=== PATIENT | male | born 1955 | race Caucasian/White ===

== ENCOUNTER → 2022-07-26 08:59 | Outpatient (BNVA) | payer MEDICARE, SELFPAY | PROVIDERS: PCP Nurse Practitioner Family; Visit Provider Psychiatry & Neurology Neurology | DX: R51.9 Headache, unspecified (principal); R44.0 Auditory hallucinations; R44.1 Visual hallucinations; G89.29 Other chronic pain; G47.00 Insomnia, unspecified | CPT/HCPCS: Q3014 ==

== ENCOUNTER → 2022-10-11 11:32 | Outpatient (BNVA) | payer MEDICARE, SELFPAY | PROVIDERS: PCP Nurse Practitioner Family; Visit Provider Nurse Practitioner Family | DX: R51.9 Headache, unspecified (principal); G89.29 Other chronic pain; R44.0 Auditory hallucinations; R44.1 Visual hallucinations | CPT/HCPCS: 99212 ==

== ENCOUNTER 2023-03-13 07:58 | Outpatient (REF) | payer MEDICARE, SELFPAY ==
--- NOTE | 2023-03-13 08:01 | EEG_ITS ---
FINDINGS: The waking background activity consists of a low voltage posterior 10 hertz alpha frequency intermixed anteriorly with low-voltage fast frequencies. All low-voltage fast frequencies predominant anteriorly. Photic stimulation is without activation. Hyperventilation was omitted. No sleep stages are identified. No focal, lateralizing, or paroxysmal discharges are seen. IMPRESSION: This waking EEG is within normal limits. MD GIDEON Rendon/NIK / [phone]
== END 2023-03-13 07:59 | disposition home or self-care (01) ==
LOC: HO.NEURO 07:58
PROVIDERS: PCP Nurse Practitioner Family; Visit Provider Nurse Practitioner Family
DX: R44.0 Auditory hallucinations (principal); R44.1 Visual hallucinations; R51.9 Headache, unspecified; G89.29 Other chronic pain
CPT/HCPCS: 95816

== ENCOUNTER 2023-04-11 09:06 | Outpatient (AMB) | payer MEDICARE, SELFPAY ==
--- NOTE | 2023-04-11 09:12 | MHC.OFFVIS ---
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 Pt reports that visual and auditory hallucination has decreased a little bit with aripiprazole 2 mg daily. Pt states that he still sees people, hears noise, music and people talking. Pt also has tinnitus. However, pt is not sure what is real and what is not real. Pt also reports forgetfulness, difficulty concentrate, don't remember things well. He reports constant temporal and evaristo-orbital pressure headache. Pt experiences dizzy, lightheadedness and losing balance. He dreams a lot of different things, and wakes up tired. He can't sleep well, snores, wakes up frequently in the middle of night and having daytime sleepiness. Pt was referr to psychiatry but patient was unable to get a psychiatrist consultation yet. However he had a counselor. [facility] Medical History Formed hallucinations of people Auditory hallucinations Neuropathy Gastritis Chest pain CAD (coronary artery disease) Depression Anxiety Diabetes HTN (hypertension) Alcohol abuse Surgical History S/P tooth extraction H/O shoulder surgery H/O knee surgery History of kidney surgery H/O removal of cyst History of ankle surgery Family History Father Cancer Cardiac disease Mother Cardiac disease Brother Ankylosis of spine Social History (Updated 04/11/23 @ 09:18 by Suzie Tesfaye CMA) Household Members: Spouse Alcohol intake: former Patient Tobacco Use Status: Former Tobacco user Current occupational status: retired and disabled Review of Systems Const All systems reviewed & are unremarkable except as noted in HPI and below ENT Reports Normal hearing present Neuro Reports Normal hearing present Physical Exam Vital Signs: Last Vital Signs Pulse 77 04/11/23 09:18 BP 120/62 04/11/23 09:18 Pulse Ox 95 04/11/23 09:18 Oxygen Delivery Method Room Air 04/11/23 09:18 Const General: cooperative Nutritional Appearance: average body habitus Orientation/consciousness: patient oriented x3 Neck Neck: Yes full ROM and Yes supple Resp Effort & Inspection: normal respiratory effort and able to speak in complete sentences Neuro General: patient oriented x3 and moves all extremities Cranial nerves: Yes Normal facial strength present, Yes Midline tongue present, Yes Symmetric palate elevation present, Yes Normal hearing present, Yes Ability to bilaterally rotate head present and Yes Ability to bilaterally elevate shoulders present Gait exam (Neuro): Normal gait present Motor exam (neuro): 5/5 motor strength present throughout, Pronator motor function not present and no tremor noted Psych Appearance: grossly normal Mental Status: mental status grossly normal Speech and movement: Normal speech and movement present Affect: normal affect Attitude: cooperative Orientation What is the (year) (season) (date) (day) (month)?: year, season, date, day and month Where are we (state) (county) (town or city) (hospital) (floor)?: state, county, town or city, hospital/clinic and floor Registration Name of 3 unrelated objects clearly and slowly, then ask patient to repeat all 3 of them. (1st repeat determines score. Make sure they can repeat all three): object 1, object 2 and object 3 Attention & Calculation (CHOOSE ONE) Spell WORLD backwards (DLROW): 5 letters Recall Ask patient to repeat the 3 items from question #3.: object 3 Language Show patient a wristwatch & ask what it is. Repeat for pencil.: watch and pencil Ask the patient to repeat the phrase 'No ifs, ands, or buts' after you.: correct Ask the patient to 'take a piece of paper with their right hand' 'fold paper in half' 'place paper on floor': take paper in right hand, fold paper in half and place paper on floor Print the sentence 'CLOSE YOUR EYES' on a piece. If patient actually closes eyes then score.: followed written direction Give patient a blank piece of paper & ask to write a sentence. Score if it contains a noun & verb.: sentence contains subject and verb Ask patient to copy figure of intersecting pentagons exactly. Score if all 10 angles & 2 intersects are included.: all 10 angles present & 2 are intersected Score Score: 28 Assessment & Plan Assessment & Plan (1) Auditory hallucinations: Code(s): R44.0 - Auditory hallucinations (2) Formed hallucinations of people: Code(s): R44.1 - Visual hallucinations (3) Chronic headaches: Comment: likely related to neck tightness Code(s): R51.9 - Headache, unspecified; G89.29 - Other chronic pain (4) Insomnia: Comment: multifactorial Code(s): G47.00 - Insomnia, unspecified Plan Advised patient to continue to take aripirazole 2 mg daily. Advised patient to undergo brain MRI. Advised patient to undergo in lab sleep study to assess sleep apnea, PLMD or REM behavior. Lab ordered to check any reversible causes memory loss. Orders: Orders RT PSG in-lab sleep study 04/11/23 F09 - Unspecified mental disorder due to known physiological condition, G47.00 - Insomnia, unspecified, G89.29 - Other chronic pain, R06.83 - Snoring, R40.0 - Somnolence, R44.0 - Auditory hallucinations, R44.1 - Visual hallucinations, R51.9 - Headache, unspecified Vitamin B12 and Folate 04/11/23 E11.9 - Type 2 diabetes mellitus without complications, F09 - Unspecified mental disorder due to known physiological condition, I10 - Essential (primary) hypertension, R44.0 - Auditory hallucinations, R51.9 - Headache, unspecified Comprehensive Met. Panel 04/11/23 E11.9 - Type 2 diabetes mellitus without complications, F09 - Unspecified mental disorder due to known physiological condition, I10 - Essential (primary) hypertension, R44.0 - Auditory hallucinations, R51.9 - Headache, unspecified OT Evaluation and Treatment 04/11/23 F09 - Unspecified mental disorder due to known physiological condition MR head/brain wo con 04/11/23 F09 - Unspecified mental disorder due to known physiological condition, R26.89 - Other abnormalities of gait and mobility, R51.9 - Headache, unspecified Complete Blood Count Auto Diff 04/11/23 E11.9 - Type 2 diabetes mellitus without complications, E55.9 - Vitamin D deficiency, unspecified, F09 - Unspecified mental disorder due to known physiological condition, I10 - Essential (primary) hypertension, R44.0 - Auditory hallucinations, R51.9 - Headache, unspecified, R53.83 - Other fatigue Erythrocyte Sedimentation Rate 04/11/23 E11.9 - Type 2 diabetes mellitus without complications, F09 - Unspecified mental disorder due to known physiological condition, I10 - Essential (primary) hypertension, R44.0 - Auditory hallucinations, R51.9 - Headache, unspecified Vitamin D 25-OH (D2 and D3) 04/11/23 E11.9 - Type 2 diabetes mellitus without complications, F09 - Unspecified mental disorder due to known physiological condition, I10 - Essential (primary) hypertension, R44.0 - Auditory hallucinations, R51.9 - Headache, unspecified TSH reflex Free T4 04/11/23 E11.9 - Type 2 diabetes mellitus without complications, F09 - Unspecified mental disorder due to known physiological condition, I10 - Essential (primary) hypertension, R44.0 - Auditory hallucinations, R51.9 - Headache, unspecified Coding Level of Care Code Est Pt Level 4 (34267) Diagnoses Auditory hallucinations R44.0 Formed hallucinations of people R44.1 Chronic headaches R51.9; G89.29 Insomnia G47.00
[2023-04-11 09:18] VITALS: BP 120/62; PULSE 77; O2SAT 95
== END 2023-04-11 09:52 | disposition home or self-care (01) ==
PROVIDERS: Visit Provider Nurse Practitioner Family
DX: R44.0 Auditory hallucinations (principal); R44.1 Visual hallucinations; R51.9 Headache, unspecified; G89.29 Other chronic pain; G47.00 Insomnia, unspecified
CPT/HCPCS: 99214

== ENCOUNTER 2023-04-11 09:06 | Outpatient (REF) | payer MEDICARE, SELFPAY ==
[2023-04-11 11:04] LABS: MANUAL DIFF FLAG NO
[2023-04-11 11:32] LABS: Basophils Absolute Auto 0.1 X10*3/uL (0.0-0.2); Basophils Percent Auto 0.8 % (0-2); Eosinophils Absolute Auto 0.1 X10*3/uL (0.0-0.4); Eosinophils Percent Auto 1.9 % (0-4); Hematocrit 35.9 % (42.0-52.0); Imm Gran Abs Auto 0.04 X10*3/uL (0.00-0.03); Imm Gran Pct Auto 0.6 % (0.0-0.4); Lymphocytes Absolute Auto 1.4 X10*3/uL (1.2-4.9); Lymphocytes Percent Auto 22.3 % (20-40); Mean Corpuscular HGB Conc 33.4 g/dl (31.0-36.0); Mean Corpuscular Volume 83.7 fL (80.0-98.0); Mean Platelet Volume 9.1 fL (9.4-12.4); Monocytes Absolute Auto 0.5 X10*3/uL (0.1-1.2); Monocytes Percent Auto 7.9 % (2-11); Neutrophils Absolute Auto 4.1 x10*3/uL (2.0-8.3); Neutrophils Percent Auto 66.5 % (45-73); Platelet Count 243 X10*3/uL (160-400); Red Blood Count 4.29 X10*6/uL (4.60-5.80); Red Cell Distribution Width 14.1 % (11.0-16.0); White Blood Count 6.2 X10*3/uL (4.8-10.8)
[2023-04-11 12:11] LABS: Alanine Aminotransferase 23 U/L (0-40); Albumin Level 4.5 g/dL (3.5-5.0); Alkaline Phosphatase 111 U/L (39-117); Anion Gap 14 (12-20); Aspartate Amino Transferase 17 U/L (5-37); Bilirubin Total 0.6 mg/dL (0.0-1.0); Blood Urea Nitrogen 16 mg/dL (9-16); Calcium 9.7 mg/dL (8.4-10.2); Carbon Dioxide 28 mmol/L (22-29); Chloride 103 mmol/L (96-108); Estimated Glomerular Filt Rate > 60; Glucose Random 93 mg/dL (60-115); Potassium 4.2 mmol/L (3.3-5.1); Sodium 141 mmol/L (135-145); Total Protein 7.1 g/dL (6.5-8.0)
[2023-04-11 12:22] LABS: Erythrocyte Sedimentation Rate 9 MM/HR (0-15)
[2023-04-11 12:30] LABS: TSH reflex Free T4 1.27 uIU/mL (0.32-4.0)
[2023-04-11 12:38] LABS: Folate 8.6 ng/mL (> or = 4.0); Vitamin B12 388 pg/mL (200-900)
[2023-04-15 14:24] LABS: Vitamin D 25-OH, D2 <4 ng/mL; Vitamin D 25-OH, D3 36 ng/mL; Vitamin D 25-OH, Total 36 ng/mL (30-100)
== END 2023-04-11 09:07 | disposition home or self-care (01) ==
LOC: HO.LAB 09:06
PROVIDERS: PCP Nurse Practitioner Family; Visit Provider Nurse Practitioner Family
DX: R44.0 Auditory hallucinations (principal); R44.1 Visual hallucinations; G89.29 Other chronic pain; R51.9 Headache, unspecified; G47.00 Insomnia, unspecified; E11.9 Type 2 diabetes mellitus without complications; I10 Essential (primary) hypertension; F09 Unspecified mental disorder due to known physiological condition; R53.83 Other fatigue; Z79.899 Other long term (current) drug therapy
CPT/HCPCS: 36415; 80053; 82306; 82607; 82746; 84443; 85025; 85652; 99212

== ENCOUNTER 2023-05-25 08:46 | Outpatient (REF) | payer MEDICARE, SELFPAY ==
--- NOTE | ~2023-05-25 | MR_ITS ---
EXAMINATION: MR BRAIN WITHOUT CONTRAST CLINICAL INFORMATION: Cognitive disorder. Headaches and balance problems. COMPARISON: None available. TECHNIQUE: Multiplanar, multisequence imaging of the brain was performed without contrast. FINDINGS: No diffusion abnormalities are identified to suggest an acute infarct. No mass effect or midline shift is seen. Mild scattered white matter signal changes may be due to chronic microangiopathy. There is [id number] generalized brain parenchymal volume loss with concordant ex vacuo dilatation of the ventricles. A potential small chronic lacunar infarct is visible in the right periatrial white matter. No extra-axial fluid collections are seen. The brainstem and cerebellum are normal. The gradient refocused acquisition demonstrates no pathologic magnetic susceptibility artifact to indicate underlying acute or chronic blood products. The craniovertebral junction, marrow signal, and midline structures are normal. The major intracranial flow voids at the level of the lower brule of [place] are preserved. The dural venous sinus flow voids are maintained. The mastoid air cells and paranasal sinuses are fairly well aerated. MR/MR head/brain wo con IMPRESSION: No acute intracranial process. [id number] generalized brain parenchymal volume loss and nonspecific mild white matter signal changes which may be due to chronic microangiopathy.
== END 2023-05-25 08:47 | disposition home or self-care (01) ==
LOC: HO.MRI 08:46
PROVIDERS: PCP Nurse Practitioner Family; Visit Provider Nurse Practitioner Family
DX: R51.9 Headache, unspecified (principal); R26.89 Other abnormalities of gait and mobility; F09 Unspecified mental disorder due to known physiological condition
CPT/HCPCS: 70551

== ENCOUNTER 2023-07-13 08:36 | Outpatient (AMB) | payer MEDICARE, SELFPAY ==
--- NOTE | 2023-07-13 08:37 | A.OFFVIS_ITS ---
Intake Vital Signs 07/13/23 08:45 Height 5 ft 10 in Weight 195 lb BMI 28.0 BP 120/78 Blood Pressure Location Lt brachial Position Sitting Pulse 63 Pulse Source Pulse Oximeter Pulse Oximetry (%) 98 Oxygen Delivery Method Room Air Intake Visit Reasons: 3 mnts f/u appt-LVM Intake Note: Patient presets for 3 month F/U. wants to know if he has signs of Dementia or could it be connected to covid Allergies No Known Allergies Allergy (Verified 07/13/23 08:42) HPI HPI Comments History of Present Illness Details 68 y/o male patient presents for follow up of auditory and visual hallucination. Pt reports that visual and auditory hallucination has been improved with aripirazole 2 mg daily, but he still can see people, hears noise, music and people talking. Pt also has tinnitus. Pt also reports increased forgetfulness, difficulty concentrate, don't remember things well. He had a neuropsychology evaluation done in Apr, 2022. The result was normal cognition for someone of his age and background, and suggested to have PSG sleep study. PSG ordered, but not done yet, he thinks that he rescheduled it. He dreams a lot of different things, and wakes up tired. He can't sleep well, snores, wakes up frequently in the middle of night and having daytime sleepiness. He reports constant temporal and evaristo-orbital pressure headache. Pt experiences dizzy, lightheadedness and losing balance. Pt was referred to psychiatry but patient was unable to get a psychiatrist consultation yet. [facility] Medical History Formed hallucinations of people Auditory hallucinations Neuropathy Gastritis Chest pain CAD (coronary artery disease) Depression Anxiety Diabetes HTN (hypertension) Alcohol abuse Surgical History S/P tooth extraction H/O shoulder surgery H/O knee surgery History of kidney surgery H/O removal of cyst History of ankle surgery Family History Father Cancer Cardiac disease Mother Cardiac disease Brother Ankylosis of spine Social History Household Members: Spouse Alcohol intake: former Patient Tobacco Use Status: Former Tobacco user Current occupational status: retired and disabled Review of Systems Const All systems reviewed & are unremarkable except as noted in HPI and below ENT Reports Normal hearing present Neuro Reports Normal hearing present Physical Exam Vital Signs: Last Vital Signs Pulse 63 07/13/23 08:45 BP 120/78 07/13/23 08:45 Pulse Ox 98 07/13/23 08:45 Oxygen Delivery Method Room Air 07/13/23 08:45 BMI result Body Mass Index 28.0 Const General: cooperative Nutritional Appearance: average body habitus Orientation/consciousness: patient oriented x3 Neck Neck: Yes full ROM and Yes supple Resp Effort & Inspection: normal respiratory effort and able to speak in complete sentences Neuro General: patient oriented x3 and moves all extremities Cranial nerves: Yes Normal facial strength present, Yes Midline tongue present, Yes Symmetric palate elevation present, Yes Normal hearing present, Yes Ability to bilaterally rotate head present and Yes Ability to bilaterally elevate shoulders present Gait exam (Neuro): Normal gait present Motor exam (neuro): 5/5 motor strength present throughout, Pronator motor function not present and no tremor noted Psych Appearance: grossly normal Mental Status: mental status grossly normal Speech and movement: Normal speech and movement present Affect: normal affect Attitude: cooperative Assessment & Plan Assessment & Plan (1) Auditory hallucinations: Code(s): R44.0 - Auditory hallucinations (2) Formed hallucinations of people: Code(s): R44.1 - Visual hallucinations (3) Chronic headaches: Comment: likely related to neck tightness Code(s): R51.9 - Headache, unspecified; G89.29 - Other chronic pain (4) Insomnia: Comment: multifactorial Code(s): G47.00 - Insomnia, unspecified Plan Advised patient to continue to take aripirazole 2 mg daily. Advised patient to undergo in lab sleep study to assess sleep apnea, PLMD or REM behavior. Advised patient to have repeat neuropsychology evaluation of memory loss. May try magnesium for headache prevention. Orders: Referrals Neuropsychiatry Referral F09 - Unspecified mental disorder due to known physi ological condition, R44.0 - Auditory hallucinations, R44.1 - Visual hallucinations Medications: New magnesium oxide 400 mg PO DAILY 90 days 90 tabs 1RF Coding Level of Care Code Est Pt Level 4 (56745) Diagnoses Auditory hallucinations R44.0 Formed hallucinations of people R44.1 Chronic headaches R51.9; G89.29 Insomnia G47.00
[2023-07-13 08:45] VITALS: BP 120/78; PULSE 63; O2SAT 98; BMI 28.0
== END 2023-07-13 09:23 | disposition home or self-care (01) ==
PROVIDERS: PCP Nurse Practitioner Family; Visit Provider Nurse Practitioner Family
DX: R44.0 Auditory hallucinations (principal); R44.1 Visual hallucinations; R51.9 Headache, unspecified; G89.29 Other chronic pain; G47.00 Insomnia, unspecified
CPT/HCPCS: 99214

== ENCOUNTER → 2023-07-13 08:36 | Outpatient (BNVA) | payer MEDICARE, SELFPAY | PROVIDERS: PCP Nurse Practitioner Family; Visit Provider Nurse Practitioner Family | DX: R44.0 Auditory hallucinations (principal); R44.1 Visual hallucinations; R51.9 Headache, unspecified; G47.00 Insomnia, unspecified; G89.29 Other chronic pain | CPT/HCPCS: 99212 ==

== ENCOUNTER → 2023-07-29 20:30 | Outpatient (REF) | payer MEDICARE, SELFPAY | LOC: HO.SL 20:30 | PROVIDERS: PCP Nurse Practitioner Family; Visit Provider Nurse Practitioner Family | DX: G47.00 Insomnia, unspecified (principal); R51.9 Headache, unspecified; G89.29 Other chronic pain; F09 Unspecified mental disorder due to known physiological condition; R06.83 Snoring; G47.19 Other hypersomnia; I10 Essential (primary) hypertension; E11.9 Type 2 diabetes mellitus without complications; G47.30 Sleep apnea, unspecified; R44.1 Visual hallucinations; G47.29 Other circadian rhythm sleep disorder | CPT/HCPCS: 95810 ==

== ENCOUNTER → 2023-07-29 22:02 | Outpatient (BNV) | payer MEDICARE, SELFPAY | PROVIDERS: PCP Nurse Practitioner Family; Visit Provider Internal Medicine | DX: R06.83 Snoring (principal) | CPT/HCPCS: 95810 ==

== ENCOUNTER 2025-04-13 09:46 | Outpatient (AMB) | payer MEDICARE, SELFPAY ==
--- NOTE | 2025-04-13 09:57 | HO.SPINEOV ---
Vital Signs 04/13/25 10:06 Height 5 ft 10 in Weight 148 lb BMI 21.2 Intake Visit Reasons: right leg weakness Intake Note: Mr. Joyner is here today c/o back pain and weakness. 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 He is a pleasant 70-year-old male who comes in today for evaluation of right-sided low back pain. He reports this has been ongoing for many years, and states that he previously had a decompression surgery done about 10 years ago in an attempt to treat this. He does not remember what exactly the procedure was, or who the surgeon was that did it, but he does state that it was done somewhere in [place]. In addition to his right-sided low back pain he reports some shooting pain into his right lateral hip and right lateral thigh. He has a fairly complex past medical history including 2 CVAs in the past 1 year. Currently on 2 different forms of anticoagulation. He reports baseline right-sided upper and lower extremity weakness as a result of the last CVA that he had about 6 months ago. He also has a previous history of myocardial infarction, and is scheduled to undergo a Watchman procedure for AFib later this year. He states that over the course of the last year so his low back pain has significantly intensified, increasing to what he calls an 8/10 pain today. He states the pain is essentially constant throughout the day, in the only relief that he is able to achieve his by sitting in his comfortable chair in his living room. He is currently taking Tylenol at home to help mitigate the pain but denies any other current medications. He has been referred to physical therapy, and states that he is going to start with them shortly. He has not attempted injections in his lumbar spine as of yet. 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 Social hx: The patient does not smoke, reports no substance use. Medications: Eliquis, vitamin-C, Lipitor, baclofen, carbamazepine, Pletal, clopidogrel, B12, Cymbalta, ferrous sulfate, gabapentin, isosorbide, Latanoprost, magnesium glycinate, melatonin, metoprolol, pantoprazole, trazodone, valsartan. Allergies: NKDA. Physical exam: The patient has 5/5 strength with right-sided knee extension and dorsiflexion. The rest of his right-sided strength is diffusely 4/5 at best, with some muscle groups (handgrip, iliopsoas) slightly weaker than others, which I would rate somewhere between 3/5-4/5. He ambulates slowly with a slightly antalgic gait, favoring the left-hand side. He uses a walker at baseline to help with ambulation. He is able to rise from a seated position with some difficulty, and also is able to get up onto the examination table with a some difficulty. (+) Right sided osborn's, (+) R sided clonus. No osborn's or clonus on left side. Mild hyperreflexia also noted on right side only. Imaging review: MRI of the lumbar spine completed at [facility] on 03/29/2025 shows severe right-sided foraminal stenosis L3-4, with notable disc degeneration at this level. There is severe central canal stenosis with bilateral foraminal stenosis at L4-5. Severe degenerative disc disease noted at this level with notable posterior disc bulge. Impression: Pietro is a pleasant, complicated 70-year-old male who comes in today for evaluation of right-sided low back pain and some shooting pain to his right lower extremity. This has been ongoing for the past 10 years or so and was not adequately treated by his last lumbar spine procedure. He reports his pain is essentially constant throughout the day. I believe his pain is likely originating from the listhesis and nerve compression seen at L4-5 on MRI imaging. This is something that Dr. Quarles would typically treat with L4-5 lumbar fusion. However, the patient's recent past medical history would make this a fairly high risk surgery. We would have to stop his anticoagulants for surgery, and in the context of 2 CVAs in the past 1 year this could be particularly detrimental. In addition to this he is scheduled to undergo a Watchman procedure to control his AFib in try and reduce further clotting. I believe that he should follow up with his clinical services professional, complete his Watchman procedure, and see if his clinical services professional believes he is a reasonable candidate to stop his anticoagulants before any further discussion regarding surgery takes place. In the interim, I would like to send a referral for our colleagues in pain management to evaluate him for possible injections at L4-5 to help reduce some of his pain while his other co-morbidities are addressed. I would like to see him again in clinic after he recovers from his Watchman procedure and discusses risk stratification with his clinical services professional. Thank you for allowing us to care for your patient. The total time spent with this visit with this patient was 45 minutes reviewing history, physical exam, MRI imaging review, and implementation of treatment plan or further diagnostic testing Doug Quarles MD,PhD [facility] Orders: Referrals Pain Management Referral M47.819 - Spondylosis without myelopathy or radiculopathy, site unspecified Coding Level of Care Code New Pt Level 4 (55980) Diagnoses Spondyloarthropathy M47.819
[2025-04-13 10:06] VITALS: BMI 21.2
--- OUTSIDE RECORDS SUMMARY | 2025-04-13 11:00 | XMS_ITS | Encounter Summary ---
Author Organization [facility] Address [address] [place] [address] Care Team Providers Care Workforce Management Analyst Name Role Phone Physician, Pcp Unknown Primary Care Provider Joan vailable Encounter Details Date Type Department Care Team (Late st Contact Info) Description 01/24/2025 Lab Requisition [facility] - Main Lab [address] [facility] [place] [address] Katia Bhandari PA [address] [place] [address] Encounter for other general examination Social History Tobacco Use Types Packs/Day Years Used Date Smoking Tobacco: Never Assessed Sex and Gender Information Value Date Recorded Sex Assigned at Not on file Legal Sex Male 12:18 PM EST Gender Identity Not on file Sexual Orientation Not on file documented as of this encounter Plan of Treatment Not on file documented as of this encounter Procedures Procedure Name Priority Date/Time Associated Diagnosis Comments CBC WITH AUTO DIFFERENTIAL Routine 01/24/2025 6:23 AM EDT Encounter for other general examination CBC AND DIFFERENTIAL Routine 01/24/2025 6:23 AM EDT Encounter for other general examination MAGNESIUM Routine 01/24/2025 6:23 AM EDT Encounter for other general examination COMPREHENSIVE METABOLIC PANEL Routine 01/24/2025 6:23 AM EDT Encounter for other general examination documented in this encounter Results * (ABNORMAL) CBC auto differential (01/24/2025 6:23 AM EDT) Pathologist [facility] WBC 5.0 4.8 - 10.8 K/mcL LAB HEMETOLOGY METHOD 01/24/2025 9:20 AM [facility] RBC 3.40(L) 4.50 - 5.50 M/mcL LAB HEMETOLOGY METHOD 01/24/2025 9:20 AM [facility] Hemoglobin 9.4(L) 13.5 - 17.5 g/dL LAB HEMETOLOGY METHOD 01/24/2025 9:20 AM [facility] Hematocrit 29.0(L) 42.0 - 54.0 % LAB HEMETOLOGY METHOD 01/24/2025 9:20 AM [facility] MCV 85.8 79.0 - 98.0 FL LAB HEMETOLOGY METHOD 01/24/2025 9:20 AM [facility] MCH 27.8 27.0 - 32.0 pcg LAB HEMETOLOGY METHOD 01/24/2025 9:20 AM [facility] MCHC 32.4 32.0 - 37.0 g/dL LAB HEMETOLOGY METHOD 01/24/2025 9:20 AM [facility] RDW 15.4(H) 11.0 - 15.0 % LAB HEMETOLOGY METHOD 01/24/2025 9:20 AM [facility] Platelets 215 130 - 400 K/mcL LAB HEMETOLOGY METHOD 01/24/2025 9:20 AM [facility] MPV 9.6 7.0 - 11.0 FL LAB HEMETOLOGY METHOD 01/24/2025 9:20 AM [facility] NRBC 0.0 <1.0 % LAB HEMETOLOGY METHOD 01/24/2025 9:20 AM [facility] NRBC Absolute 0.00 <0.10 K/mcL LAB HEMETOLOGY METHOD 01/24/2025 9:20 AM [facility] Neutrophils Relative 63.3 % LAB HEMETOLOGY METHOD 01/24/2025 9:20 AM [facility] Lymphocytes Relative 23.6 % LAB HEMETOLOGY METHOD 01/24/2025 9:20 AM [facility] Monocytes Relative 9.5 % LAB HEMETOLOGY METHOD 01/24/2025 9:20 AM [facility] Eosinophils Relative 2.6 % LAB HEMETOLOGY METHOD 01/24/2025 9:20 AM [facility] Basophils Relative 0.6 % LAB HEMETOLOGY METHOD 01/24/2025 9:20 AM [facility] Immature Granulocytes Relative 0.4 % LAB HEMETOLOGY METHOD 01/24/2025 9:20 AM [facility] Neutrophils Absolute 3.14 1.50 - 7.00 K/mcL LAB HEMETOLOGY METHOD 01/24/2025 9:20 AM [facility] Lymphocytes Absolute 1.17 1.00 - 5.00 K/mcL LAB HEMETOLOGY METHOD 01/24/2025 9:20 AM [facility] Monocytes Absolute 0.47 0.20 - 1.00 K/mcL LAB HEMETOLOGY METHOD 01/24/2025 9:20 AM [facility] Eosinophils Absolute 0.13 0.00 - 0.50 K/mcL LAB HEMETOLOGY METHOD 01/24/2025 9:20 AM [facility] Basophils Absolute 0.03 0.00 - 0.20 K/mcL LAB HEMETOLOGY METHOD 01/24/2025 9:20 AM [facility] Immature Granulocytes Absolute 0.02 0.00 - 0.03 K/mcL LAB HEMETOLOGY METHOD 01/24/2025 9:20 AM [facility] Blood Venous blood specimen / Unknown Venipuncture / Unknown 01/24/2025 6:23 AM EDT 01/24/2025 8:30 AM EDT us Katia LAROSE LAB BLOOD ORDERABLES Final Resul t Performing Organization Address [facility] Co de Phone Number [facility] [address] [place] [address], [place] [phone] * (ABNORMAL) Magnesium (01/24/2025 6:23 AM EDT) [facility] Magnesium 1.2(L) 1.9 - 2.6 mg/dL LAB CHEMISTRY METHOD 01/24/2025 9:38 AM EDT [facility] Blood Venous blood specimen / Unknown Venipuncture / Unknown 01/24/2025 6:23 AM EDT 01/24/2025 8:30 AM EDT us Katia LAROSE LAB BLOOD ORDERABLES Final Resul t Performing Organization Address [facility] de Phone Number [facility] [address] [place] [address], [place] [phone] * Comprehensive metabolic panel (01/24/2025 6:23 AM EDT) [facility] Sodium 136 133 - 145 mmol/L LAB CHEMISTRY METHOD 01/24/2025 9:38 AM EDT [facility] Potassium 4.3 3.5 - 5.5 mmol/L LAB CHEMISTRY METHOD 01/24/2025 9:38 AM EDT [facility] Chloride 104 96 - 110 mmol/L LAB CHEMISTRY METHOD 01/24/2025 9:38 AM EDT [facility] CO2 26 21 - 32 mmol/L LAB CHEMISTRY METHOD 01/24/2025 9:38 AM T [facility] Anion Gap 6 3 - 11 LAB CHEMISTRY METHOD 01/24/2025 9:38 AM EDT [facility] Glucose 85 70 - 100 mg/dL LAB CHEMISTRY METHOD 01/24/2025 9:38 AM [facility] BUN 16 5 - 25 mg/dL LAB CHEMISTRY METHOD 01/24/2025 9:38 AM [facility] Creatinine 0.74 0.70 - 1.30 mg/dL LAB CHEMISTRY METHOD 01/24/2025 9:38 AM [facility] LAB eGFR 98 >=60 mL/min/1. 73m2 LAB CHEMISTRY METHOD 01/24/2025 9:38 AM [facility] Comment:Calculation based on the Chronic Kidney Disease Epidemiology Collaboration (CKD-EPI) equation refit without adjustment for race. BUN/Creatinine Ratio 21.6 LAB CHEMISTRY METHOD 01/24/2025 9:38 AM [facility] Calcium 8.9 8.5 - 10.5 mg/dL LAB CHEMISTRY METHOD 01/24/2025 9:38 AM [facility] AST (SGOT) 18 10 - 42 unit/L LAB CHEMISTRY METHOD 01/24/2025 9:38 AM [facility] ALT (SGPT) 29 10 - 60 unit/L LAB CHEMISTRY METHOD 01/24/2025 9:38 AM [facility] Alkaline Phosphatase 97 42 - 121 unit/L LAB CHEMISTRY METHOD 01/24/2025 9:38 AM [facility] Total Protein 6.0 6.0 - 8.0 g/dL LAB CHEMISTRY METHOD 01/24/2025 9:38 AM [facility] Albumin 3.7 3.2 - 5.0 g/dL LAB CHEMISTRY METHOD 01/24/2025 9:38 AM [facility] Total Bilirubin 0.3 0.0 - 1.4 mg/dL LAB CHEMISTRY METHOD 01/24/2025 9:38 AM [facility] Blood Venous blood specimen / Unknown Venipuncture / Unknown 01/24/2025 6:23 AM EDT 01/24/2025 8:30 AM EDT us Katia LAROSE LAB BLOOD ORDERABLES Final Resul t [facility] ([facility]) [facility] [address] [place] [address], documented in this encounter Visit Diagnoses Diagnosis Encounter for other general examination documented in this encounter Care Teams Workforce Management Analyst Relationship Specialty Start Date End Date Physician, Pcp Unknown PCP - General 01/26/25 documented as of this encounter
--- OUTSIDE RECORDS SUMMARY | 2025-04-13 11:00 | XMS_ITS | Encounter Summary ---
Author Organization [facility] Address [address] [place] [address] Care Team Providers Care Paperhanger Assistant Name Role Phone Physician, Pcp Unknown Primary Care Provider Joan vailable Encounter Details Date Type Department Care Team (Late st Contact Info) Description 02/25/2025 Lab Requisition [facility] - Main Lab [address] [facility] [place] [address] Bimal Drummond MD [address] [facility] [address] [place], [place] [id number] Gross hematuria Social History Tobacco Use Types Packs/Day Years [...] Procedure Name Priority Date/Time Associated Diagnosis Comments NON-GYNECOLOGIC CYTOLOGY Routine 02/13/2025 12:00 AM EDT Gross hematuria documented in this encounter Results * Non-gynecologic cytology (02/13/2025 12:00 AM EDT) Final Diagnosis A. Urine, Voided, [id number]: Negative for high grade urothelial carcinoma. Acute inflammatory cells are present. Results of UroVysion fluorescence in situ hybridization (FISH) testing: CEP3: Normal CEP7: Normal CEP17: Normal LSI 9p21: Normal Interpretation: Normal profile Controls stained appropriately. Note: The results are intended as a screening device and should be interpreted in association with other clinical and pathological findings. 03/18/2025 6:07 PM EDT [facility] ([facility]) [facility] Specimen A Adequacy Satisfactory for evaluation 03/18/2025 6:07 PM EDT [facility] Clinical Information Gross hematuria R31.0 Urine Cytology/FISH (now) 03/18/2025 6:07 PM EDT [facility] Gross Description A. Urine, Voided, [id number]: Received one ThinPrep slide for cytology and one ThinPrep slide for UroVysion FISH 03/18/2025 6:07 PM EDT [facility] Disclaimer Unless otherwise specified, all tissue is 10% NB formalin fixed and paraffin embedded. Technical pathology services provided by [facility] at [address] [place] [address] [address], [place] [address] (CLIA #[id number]/Lillian Sanchez MD, Quiller Machine Fixer) 03/18/2025 6:07 PM EDT [facility] Urine Urine specimen from urethra / Unknown 02/13/2025 02/25/2025 2:13 PM EDT us Bimal Drummond MD LAB CYTOLOGY ORDERABLES Fin al Result [facility]) [facility] LAB [address] [place] [address], documented in this encounter Visit Diagnoses Diagnosis Gross hematuria documented in this encounter Care Teams Paperhanger Assistant Relationship Specialty Start Date End Date Physician, Pcp Unknown PCP - General 01/26/25 documented as of this encounter
--- OUTSIDE RECORDS SUMMARY | 2025-04-13 11:00 | XMS_ITS | Encounter Summary ---
Author Organization [facility] Address [address] [place] [address] Care Team Providers Care Crimping Press Operator Name Role Phone Physician, Pcp Unknown Primary Care Provider Joan vailable Encounter Details Date Type Department Care Team (Late st Contact Info) Description 05/05/2024 Lab Requisition [facility] - Main Lab [address] [place] [address] Mark Starr MD [address] [place] [id number] Cerebral infarction, unspecified (CMS/HCC V24, CMS/HCC V28) Social History Tobacco Use Types Packs/Day Years [...] Procedure Name Priority Date/Time Associated Diagnosis Comments C-REACTIVE PROTEIN Routine 05/05/2024 6: 23 AM EST Cerebral infarction, unspecified (CMS/HCC) documented in this encounter Results * (ABNORMAL) C-reactive protein (05/05/2024 6:23 AM EST) C-Reactive Protein 5.08(H) <=0.50 mg/dL LAB CHEMISTRY METHOD 05/05/2024 1:38 PM EST [facility] ([facility]) [facility] Blood Venous blood specimen / Unknown Venipuncture / Unknown 05/05/2024 6:23 AM EST 05/05/2024 11:55 AM EST us Adnan M Dahdul MD LAB BLOOD ORDERABLES Final Res ult [facility] ([facility]) [facility] [address] [place] [address], documented in this encounter Visit Diagnoses Diagnosis Cerebral infarction, unspecified (CMS/HCC V24, CMS/HCC V28) documented in this encounter Care Teams Crimping Press Operator Relationship Specialty Start Date End Date Physician, Pcp Unknown PCP - General 01/26/25 documented as of this encounter
--- OUTSIDE RECORDS SUMMARY | 2025-04-13 11:00 | XMS_ITS | Encounter Summary ---
Author Organization [facility] Address [address] [place] [address] Care Team Providers Care Sas Programmer Name Role Phone Physician, Pcp Unknown Primary Care Provider Joan vailable Encounter Details Date Type Department Care Team (Late st Contact Info) Description 01/25/2025 Lab Requisition [facility] - Main Lab [address] [facility] [place] [address] Katia Bhandari PA [address] [place] [address] Encounter for other general examination [...] Procedure Name Priority Date/Time Associated Diagnosis Comments PHOSPHORUS Routine 01/25/2025 5:25 AM EDT Encounter for other general examination MAGNESIUM Routine 01/25/2025 5:25 AM EDT Encounter for other general examination documented in this encounter Results * Phosphorus (01/25/2025 5:25 AM EDT) Phosphorus 3.7 2.5 - 4.5 mg/dL LAB CHEMISTRY METHOD 01/25/2025 9:51 AM EDT [facility] ([facility] Blood Venous blood specimen / Unknown Venipuncture / Unknown 01/25/2025 5:25 AM EDT 01/25/2025 8:41 AM EDT Katia LAROSE LAB BLOOD ORDERABLES Final Resul t Performing Organization Address City/[facility]/ZIP Co de Phone Number [facility] [address] [place] [address], [place] [phone] * (ABNORMAL) Magnesium (01/25/2025 5:25 AM EDT) Magnesium 1.5(L) 1.9 - 2.6 mg/dL LAB CHEMISTRY METHOD 01/25/2025 9:46 AM EDT [facility] Blood Venous blood specimen / Unknown Venipuncture / Unknown 01/25/2025 5:25 AM EDT 01/25/2025 8:41 AM EDT us Katia LAROSE LAB BLOOD ORDERABLES Final Resul t Performing Organization Address [facility] Co de Phone Number [facility] [address] [place] [address], [place] [phone] documented in this encounter Visit Diagnoses Diagnosis Encounter for other general examination documented in this encounter Care Teams Sas Programmer Relationship Specialty Start Date End Date Physician, Pcp Unknown PCP - General 01/26/25 documented as of this encounter
--- OUTSIDE RECORDS SUMMARY | 2025-04-13 11:00 | XMS_ITS | Clinical Summary ---
Author Organization [address] Address [address] [place] [address] Phone Care Team Providers Care Air Traffic Coordinator Name Role Phone Physician, Pcp Unknown Primary Care Provider Joan vailable Encounters Date Type Department Care Team Description 03/09/[address] [facility] Lab [address] [place] [address] Bimal Drummond MD Benign prostatic hyperplasia with lower urinary tract symptoms 02/25/[address] [facility] Lab [address] [place] [address] Bimal Drummond MD Gross hematuria 02/02/[address] [facility] Lab [address] [place] [address] Marcella Duque PA Encounter for other general examination 02/01/[address] [facility] Lab [address] [place] [address] Katia Bhandari PA Unspecified external cause status 02/01/[address] [facility] Lab [address] [place] [address] Katia Bhandari PA 01/27/[address] [facility] Lab [address] [place] [address] Katia Bhandari PA Encounter for other general examination 01/25/[address] [facility] Lab [address] [place] [address] Katia Bhandari PA Encounter for other general examination 01/24/2025 Lab Requisition [facility] Lab [address] [place] [address] Katia Bhandari PA Encounter for other general examination from Last 3 Months Social History Tobacco Use Types Packs/Day Years Used Date Smoking Tobacco: Never Assessed Sex and Gender Information Value Date Recorded Sex Assigned at Not on file Legal Sex Male 12:18 PM EST Gender Identity Not on file Sexual Orientation Not on file Plan of Treatment Health Maintenance Due Date Last Done Comments Colorectal Cancer Screening: Colonoscopy 1955 Diabetes: Annual Foot Exam 01/18/1966 RSV Immunization Adult Patients (1 - Risk 50-74 years 1-dose series) 01/18/2006 Pneumococcal Vaccine: 50+ Years (2 of 2 - PCV20 or PCV21) 04/10/2020 04/10/2019 Zoster Vaccines (2 of 2) 07/04/2021 05/09/2021 Abdominal Aortic Aneurysm (AAA) Screen 05/23/2022 Falls Risk Assessment 05/23/2022 Medicare Annual Wellness Visit 05/23/2022 Social Influencers of Health Screening 05/23/2022 Diabetes: Annual Retina Eye Exam 11/23/2022 11/23/2021 Diabetes: Annual Urine Albumin-Creatinine Ratio (uACR) 05/01/2024 01/07/2020, 08/30/2018 Depression Screening 06/25/2024 Diabetes: Blood Sugar Control Test (HGBA1C) 10/24/2024 04/26/2024, 06/19/2023 COVID-19 Vaccine ( season) 2025 06/06/2022, 05/09/2021, 10/13/2020, Additional history exists Influenza Vaccine (#1) 2025 , 06/19/2023, 03/10/2022, Additional history exists Diabetes: Annual GFR (Glomerular Filtration Rate) 02/02/2026 02/02/2025, 02/01/2025, 01/24/2025, Additional history exists Hypertension/CHF/CAD Annual BMP Blood Test 02/02/2026 02/02/2025, 02/01/2025, 01/24/2025, Additional history exists Cholesterol Screening (Lipid Panel) 01/05/2030 01/05/2025, 2023 DTaP,Tdap,and Td Vaccines (4 - Td or Tdap) 03/12/2032 03/12/2022, 06/10/2014, 01/04/2011 Hepatitis C Screening Completed 11/13/2018 HIB Vaccines Aged Out No longer eligi ble based on patient's age to complete this topic HPV Vaccines Aged Out No longer eligi ble based on patient's age to complete this topic Hepatitis A Vaccines Aged Out No long er eligible based on patient's age to complete this topic Hepatitis B Vaccines Aged Out No long er eligible based on patient's age to complete this topic IPV Vaccines Aged Out No longer eligi ble based on patient's age to complete this topic MMR Vaccines Aged Out No longer eligi ble based on patient's age to complete this topic Meningococcal ACWY Vaccine Aged Out N o longer eligible based on patient's age to complete this topic Meningococcal B Vaccine Aged Out No l onger eligible based on patient's age to complete this topic RSV Immunization Patients Under 20 months Aged Out No longer eligible based on patient's age to complete this topic Varicella Vaccines Aged Out No longer eligible based on patient's age to complete this topic Procedures Procedure Name Priority Date/Time Associated Diagnosis Comments NON-GYNECOLOGIC CYTOLOGY 02/25/2025 12:00 AM EDT Benign prostatic hyperplasia with lower urinary tract symptoms NON-GYNECOLOGIC CYTOLOGY Routine 02/13/2025 12:00 AM EDT Gross hematuria CBC WITH AUTO DIFFERENTIAL Routine 02/02/2025 5:17 AM EDT Encounter for other general examination COMPREHENSIVE METABOLIC PANEL Routine 02/02/2025 5:17 AM EDT Encounter for other general examination CBC AND DIFFERENTIAL Routine 02/02/2025 5:17 AM EDT Encounter for other general examination CBC WITH AUTO DIFFERENTIAL Routine 02/01/2025 1:00 PM EDT Unspecified external cause status CBC AND DIFFERENTIAL Routine 02/01/2025 1:00 PM EDT Unspecified external cause status COMPREHENSIVE METABOLIC PANEL Routine 02/01/2025 1:00 PM EDT Unspecified external cause status MAGNESIUM Routine 01/27/2025 4:53 AM EDT Encounter for other general examination PHOSPHORUS Routine 01/25/2025 5:25 AM EDT Encounter for other general examination MAGNESIUM Routine 01/25/2025 5:25 AM EDT Encounter for other general examination CBC WITH AUTO DIFFERENTIAL Routine 01/24/2025 6:23 AM EDT Encounter for other general examination CBC AND DIFFERENTIAL Routine 01/24/2025 6:23 AM EDT Encounter for other general examination MAGNESIUM Routine 01/24/2025 6:23 AM EDT Encounter for other general examination COMPREHENSIVE METABOLIC PANEL Routine 01/24/2025 6:23 AM EDT Encounter for other general examination HEMOGLOBIN A1C Routine 04/26/2024 5:50 AM EDT Cerebral infarction, unspecified (CMS/HCC) from Last 3 Months or Most Recently Relevant to Health Maintenance Results * Non-gynecologic cytology (02/25/2025 12:00 AM EDT) Only the most recent of2 resultswithin the time period is included. Final Diagnosis A. 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 03/30/2025 2:21 PM [facility]T [facility] at 1421 EDT Specimen A Adequacy Satisfactory for evaluation 03/30/2025 2:21 PM EDT [facility] Clinical Information Benign prostatic hyperplasia with lower urinary tract symptoms N40.1 Urine cytology with reflex UroVysion (AUC/SHGUC) 03/30/2025 2:21 PM EDT [facility] Gross Description A. Urine, Voided, [id number]: Received one ThinPrep slide for cytology. 03/30/2025 2:21 PM EDT [facility] Disclaimer Unless otherwise specified, all tissue is 10% NB formalin fixed and paraffin embedded. Technical pathology services provided by [facility] at [address], [place] [address] (CLIA #[id number]/Jaycob Sanchez MD, Lock Technician) 03/30/2025 2:21 PM EDT [facility] Urine specimen from urethra / Unknown 02/25/2025 03/09/2025 9:57 AM EDT us Bimal Drummond MD LAB CYTOLOGY ORDERABLES Fin al Result [facility] [address] [place] [address], * (ABNORMAL) CBC auto differential (02/02/2025 5:17 AM EDT) Only the most recent of3 resultswithin the time period is included. WBC 4.8 4.8 - 10.8 K/mcL LAB HEMETOLOGY METHOD 02/02/2025 11:08 AM EDT [facility] RBC 3.20(L) 4.50 - 5.50 M/mcL LAB HEMETOLOGY METHOD 02/02/2025 11:08 AM EDT [facility] Hemoglobin 8.8(L) 13.5 - 17.5 g/dL LAB HEMETOLOGY METHOD 02/02/2025 11:08 AM [facility] Hematocrit 26.9(L) 42.0 - 54.0 % LAB HEMETOLOGY METHOD 02/02/2025 11:08 AM EDT [facility] MCV 85.4 79.0 - 98.0 FL LAB HEMETOLOGY METHOD 02/02/2025 11:08 AM [facility] MCH 27.9 27.0 - 32.0 pcg LAB HEMETOLOGY METHOD 02/02/2025 11:08 AM [facility] MCHC 32.7 32.0 - 37.0 g/dL LAB HEMETOLOGY METHOD 02/02/2025 11:08 AM [facility] RDW 15.1(H) 11.0 - 15.0 % LAB HEMETOLOGY METHOD 02/02/2025 11:08 AM [facility] Platelets 224 130 - 400 K/mcL LAB HEMETOLOGY METHOD 02/02/2025 11:08 AM [facility] MPV 9.5 7.0 - 11.0 FL LAB HEMETOLOGY METHOD 02/02/2025 11:08 AM [facility] NRBC 0.0 <1.0 % LAB HEMETOLOGY METHOD 02/02/2025 11:08 AM [facility] NRBC Absolute 0.00 <0.10 K/mcL LAB HEMETOLOGY METHOD 02/02/2025 11:08 AM [facility] Neutrophils Relative 63.9 % LAB HEMETOLOGY METHOD 02/02/2025 11:08 AM [facility] Lymphocytes Relative 22.5 % LAB HEMETOLOGY METHOD 02/02/2025 11:08 AM [facility] Monocytes Relative 10.5 % LAB HEMETOLOGY METHOD 02/02/2025 11:08 AM [facility] Eosinophils Relative 2.1 % LAB HEMETOLOGY METHOD 02/02/2025 11:08 AM [facility] Basophils Relative 0.8 % LAB HEMETOLOGY METHOD 02/02/2025 11:08 AM [facility] Immature Granulocytes Relative 0.2 % LAB HEMETOLOGY METHOD 02/02/2025 11:08 AM EDT [facility] Neutrophils Absolute 3.04 1.50 - 7.00 K/mcL LAB HEMETOLOGY METHOD 02/02/2025 11:08 AM EDT [facility] Lymphocytes Absolute 1.07 1.00 - 5.00 K/mcL LAB HEMETOLOGY METHOD 02/02/2025 11:08 AM EDT [facility] Monocytes Absolute 0.50 0.20 - 1.00 K/mcL LAB HEMETOLOGY METHOD 02/02/2025 11:08 AM EDT [facility] Eosinophils Absolute 0.10 0.00 - 0.50 K/mcL LAB HEMETOLOGY METHOD 02/02/2025 11:08 AM EDT [facility] Basophils Absolute 0.04 0.00 - 0.20 K/mcL LAB HEMETOLOGY METHOD 02/02/2025 11:08 AM EDT [facility] Immature Granulocytes Absolute 0.01 0.00 - 0.03 K/mcL LAB HEMETOLOGY METHOD 02/02/2025 11:08 AM [facility] Blood Venous blood specimen / Unknown Venipuncture / Unknown 02/02/2025 5:17 AM EDT 02/02/2025 10:22 AM EDT us Marcella LAROSE LAB BLOOD ORDERABLES Final Re sult [facility] [address] [place] [address], * (ABNORMAL) Comprehensive metabolic panel (02/02/2025 5:17 AM EDT) Only the most recent of3 resultswithin the time period is included. Sodium 137 133 - 145 mmol/L LAB CHEMISTRY METHOD 02/02/2025 11:31 AM EDT [facility] Potassium 4.2 3.5 - 5.5 mmol/L LAB CHEMISTRY METHOD 02/02/2025 11:31 AM [facility] Chloride 102 96 - 110 mmol/L LAB CHEMISTRY METHOD 02/02/2025 11:31 AM [facility] CO2 29 21 - 32 mmol/L LAB CHEMISTRY METHOD 02/02/2025 11:31 AM [facility] Anion Gap 6 3 - 11 LAB CHEMISTRY METHOD 02/02/2025 11:31 AM [facility] Glucose 79 70 - 100 mg/dL LAB CHEMISTRY METHOD 02/02/2025 11:31 AM [facility] BUN 19 5 - 25 mg/dL LAB CHEMISTRY METHOD 02/02/2025 11:31 AM [facility] Creatinine 0.79 0.70 - 1.30 mg/dL LAB CHEMISTRY METHOD 02/02/2025 11:31 AM [facility] eGFR 96 >=60 mL/min/1. 73m2 LAB CHEMISTRY METHOD 02/02/2025 11:31 AM [facility] Comment:Calculation based on the Chronic Kidney Disease Epidemiology Collaboration (CKD-EPI) equation refit without adjustment for race. BUN/Creatinine Ratio 24.1 LAB CHEMISTRY METHOD 02/02/2025 11:31 AM [facility] Calcium 9.1 8.5 - 10.5 mg/dL LAB CHEMISTRY METHOD 02/02/2025 11:31 AM [facility] AST (SGOT) 16 10 - 42 unit/L LAB CHEMISTRY METHOD 02/02/2025 11:31 AM [facility] ALT (SGPT) 19 10 - 60 unit/L LAB CHEMISTRY METHOD 02/02/2025 11:31 AM [facility] Alkaline Phosphatase 130(H) 42 - 121 unit/L LAB CHEMISTRY METHOD 02/02/2025 11:31 AM [facility] Total Protein 5.9(L) 6.0 - 8.0 g/dL LAB CHEMISTRY METHOD 02/02/2025 11:31 AM EDT [facility] Albumin 3.7 3.2 - 5.0 g/dL LAB CHEMISTRY METHOD 02/02/2025 11:31 AM EDT [facility] Total Bilirubin 0.2 0.0 - 1.4 mg/dL LAB CHEMISTRY METHOD 02/02/2025 11:31 AM EDT [facility] Blood Venous blood specimen / Unknown Venipuncture / Unknown 02/02/2025 5:17 AM EDT 02/02/2025 10:22 AM EDT Marcella LAROSE LAB BLOOD ORDERABLES Final Re sult Performing Organization Address [facility] de Phone Number [facility] [address] [place] [address], [place] [phone] * (ABNORMAL) Magnesium (01/27/2025 4:53 AM EDT) Only the most recent of3 resultswithin the time period is included. Magnesium 1.4(L) 1.9 - 2.6 mg/dL LAB CHEMISTRY METHOD 01/27/2025 9:41 AM EDT [facility] Blood Venous blood specimen / Unknown Venipuncture / Unknown 01/27/2025 4:53 AM EDT 01/27/2025 8:15 AM EDT Katia LAROSE LAB BLOOD ORDERABLES Final Resul t Performing Organization Address [facility]/ZIP Co de Phone Number [facility] [address] [place] [address], [place] [phone] * Phosphorus (01/25/2025 5:25 AM EDT) Phosphorus 3.7 2.5 - 4.5 mg/dL LAB CHEMISTRY METHOD 01/25/2025 9:51 AM EDT [facility] Blood Venous blood specimen / Unknown Venipuncture / Unknown 01/25/2025 5:25 AM EDT 01/25/2025 8:41 AM EDT us Katia LAROSE LAB BLOOD ORDERABLES Final Resul t Performing Organization Address City/[facility]/ZIP Co de Phone Number [facility] [address] [place] [address], [place] [phone] * (ABNORMAL) Hemoglobin A1c (04/26/2024 5:50 AM EDT) Hemoglobin A1C 6.8(H) <6.5 % LAB CHEMISTRY METHOD 04/27/2024 10:35 AM EST [facility] Mean Bld Glu Estim. 148 mg/dL LAB CHEMISTRY METHOD 04/27/2024 10:35 AM [facility] Blood Venous blood specimen / Unknown Venipuncture / Unknown 04/26/2024 5:50 AM EDT 04/26/2024 9:44 AM EDT us Mark Starr MD LAB BLOOD ORDERABLES Final Res ult [facility] [address] [place] [address], [place] [phone] from Last 3 Months or Most Recently Relevant to Health Maintenance Insurance MEDICARE [employer] Care Teams Air Traffic Coordinator Relationship Specialty Start Date End Date Physician, Pcp Unknown PCP - General 01/26/25
--- OUTSIDE RECORDS SUMMARY | 2025-04-13 11:00 | XMS_ITS | Encounter Summary ---
Author Organization [facility] Address [address] [place] [address] Care Team Providers Care Occupational Therapy Asst Name Role Phone Physician, Pcp Unknown Primary Care Provider Joan vailable Encounter Details Date Type Department Care Team (Late st Contact Info) Description 04/26/2024 Lab Requisition [facility] [address] [facility] [place] [address] Mark Starr MD [address] [place] [id number] Cerebral infarction, unspecified (CMS/HCC V24, CMS/HCC V28) [...] Procedure Name Priority Date/Time Associated Diagnosis Comments HEMOGLOBIN A1C Routine 04/26/2024 5:50 AM EDT Cerebral infarction, unspecified (CMS/[facility]) documented in this encounter Results * (ABNORMAL) Hemoglobin A1c (04/26/2024 5:50 AM EDT) Hemoglobin A1C 6.8(H) <6.5 % LAB CHEMISTRY METHOD 04/27/2024 10:35 AM [facility] Mean Bld Glu Estim. 148 mg/dL LAB CHEMISTRY METHOD 04/27/2024 10:35 AM [facility] Blood Venous blood specimen / Unknown Venipuncture / Unknown 04/26/2024 5:50 AM EDT 04/26/2024 9:44 AM EDT us Mark Starr MD LAB BLOOD ORDERABLES Final Res ult [facility] [address] [place] [address], documented in this encounter Visit Diagnoses Diagnosis Cerebral infarction, unspecified (CMS/HCC V24, CMS/HCC V28) documented in this encounter Care Teams Occupational Therapy Asst Relationship Specialty Start Date End Date Physician, Pcp Unknown PCP - General 01/26/25 documented as of this encounter
--- OUTSIDE RECORDS SUMMARY | 2025-04-13 11:00 | XMS_ITS | Encounter Summary ---
Author Organization [facility] Address [address] [place] [address] Care Team Providers Care Sales Agent Financial Report Service Name Role Phone Physician, Pcp Unknown Primary Care Provider Joan vailable Encounter Details Date Type Department Care Team (Late st Contact Info) Description 03/09/2025 Lab Requisition [facility] Main Lab [address] [facility] [place] [address] Bimal Drummond MD [address] [facility] [address] [place], [place] [id number] Benign prostatic hyperplasia with lower urinary tract symptoms Social History Tobacco Use Types Packs/Day Years [...] prostatic hyperplasia with lower urinary tract symptoms documented in this encounter Results * Non-gynecologic cytology (02/25/2025 12:00 AM EDT) Final Diagnosis A. 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 03/30/2025 2:21 PM EDT [facility] at 1421 EDT Specimen A Adequacy Satisfactory for evaluation 03/30/2025 2:21 PM EDT [facility] Clinical Information Benign prostatic hyperplasia with lower urinary tract symptoms N40.1 Urine cytology with reflex UroVysion (AUC/GUC) 03/30/2025 2:21 PM EDT [facility] Gross Description A. Urine, Voided, [id number]: Received one ThinPrep slide for cytology. 03/30/2025 2:21 PM EDT [facility] Disclaimer Unless otherwise specified, all tissue is 10% NB formalin fixed and paraffin embedded. Technical pathology services provided by [facility] at [address] [facility] [address], [place] [address] (CLIA #[id number]/Jaycob Sanchez MD, Sloop Captain) 03/30/2025 2:21 PM EDT [facility] Urine specimen from urethra / Unknown 02/25/2025 03/09/2025 9:57 AM EDT us Bimal Drummond MD LAB CYTOLOGY ORDERABLES Fin al Result [facility] [address] [place] [address], documented in this encounter Visit Diagnoses Diagnosis Benign prostatic hyperplasia with lower urinary tract symptoms documented in this encounter Care Teams Sales Agent Financial Report Service Relationship Specialty Start Date End Date Physician, Pcp Unknown PCP - General 01/26/25 documented as of this encounter
--- OUTSIDE RECORDS SUMMARY | 2025-04-13 11:00 | XMS_ITS | Encounter Summary ---
Author Organization [facility] Address [address] [place] [address] Care Team Providers Care Physiologist Name Role Phone Physician, Pcp Unknown Primary Care Provider Joan vailable Encounter Details Date Type Department Care Team (Late st Contact Info) Description 05/13/2024 Lab Requisition [facility] - [facility] Lab [address] [place] [address] Mark Starr MD [address] [place] [id number] Cerebellar stroke syndrome Social History Tobacco Use Types Packs/Day Years [...] Procedure Name Priority Date/Time Associated Diagnosis Comments COMPLETE BLOOD COUNT Routine 05/13/2024 5:32 AM EST Cerebellar stroke syndrome COMPREHENSIVE METABOLIC PANEL Routine 05/13/2024 5:32 AM EST Cerebellar stroke syndrome documented in this encounter Results * (ABNORMAL) Complete blood count (05/13/2024 5:32 AM EST) WBC 8.4 4.8 - 10.8 K/[facility] LAB HEMETOLOGY METHOD 05/13/2024 11:59 AM EST [facility] RBC 3.90(L) 4.50 - 5.50 M/[facility] LAB HEMETOLOGY METHOD 05/13/2024 11:59 AM EST [facility] Hemoglobin 10.8(L) 13.5 - 17.5 g/dL LAB HEMETOLOGY METHOD 05/13/2024 11:59 AM EST [facility] Hematocrit 33.9(L) 42.0 - 54.0 % LAB HEMETOLOGY METHOD 05/13/2024 11:59 AM [facility] MCV 87.6 79.0 - 98.0 FL LAB HEMETOLOGY METHOD 05/13/2024 11:59 AM [facility] MCH 27.9 27.0 - 32.0 pcg LAB HEMETOLOGY METHOD 05/13/2024 11:59 AM [facility] MCHC 31.9(L) 32.0 - 37.0 g/dL LAB HEMETOLOGY METHOD 05/13/2024 11:59 AM [facility] RDW 13.7 11.0 - 15.0 % LAB HEMETOLOGY METHOD 05/13/2024 11:59 AM [facility] Platelets 338 130 - 400 K/mcL LAB HEMETOLOGY METHOD 05/13/2024 11:59 AM [facility] MPV 9.4 7.0 - 11.0 FL LAB HEMETOLOGY METHOD 05/13/2024 11:59 AM [facility] NRBC 0.0 <1.0 % LAB HEMETOLOGY METHOD 05/13/2024 11:59 AM [facility] NRBC Absolute 0.00 <0.10 K/mcL LAB HEMETOLOGY METHOD 05/13/2024 11:59 AM [facility] Blood Venous blood specimen / Unknown Venipuncture / Unknown 05/13/2024 5:32 AM EST 05/13/2024 10:36 AM EST us Mark Starr MD LAB BLOOD ORDERABLES Final Res ult [facility] [address] [place] [address], [place] [phone] * (ABNORMAL) Comprehensive metabolic panel (05/13/2024 5:32 AM EST) Sodium 141 133 - 145 mmol/L LAB CHEMISTRY METHOD 05/13/2024 1:19 PM [facility] Potassium 4.1 3.5 - 5.5 mmol/L LAB CHEMISTRY METHOD 05/13/2024 1:19 PM [facility] Chloride 104 96 - 110 mmol/L LAB CHEMISTRY METHOD 05/13/2024 1:19 PM [facility] CO2 28 21 - 32 mmol/L LAB CHEMISTRY METHOD 05/13/2024 1:19 PM [facility] Anion Gap 9 3 - 11 LAB CHEMISTRY METHOD 05/13/2024 1:19 PM [facility] Glucose 79 70 - 100 mg/dL LAB CHEMISTRY METHOD 05/13/2024 1:19 PM [facility] BUN 18 5 - 25 mg/dL LAB CHEMISTRY METHOD 05/13/2024 1:19 PM [facility] Creatinine 0.73 0.70 - 1.30 mg/dL LAB CHEMISTRY METHOD 05/13/2024 1:19 PM [facility] eGFR 99 >=60 mL/min/1. 73m2 LAB CHEMISTRY METHOD 05/13/2024 1:19 PM [facility] Comment:Calculation based on the Chronic Kidney Disease Epidemiology Collaboration (CKD-EPI) equation refit without adjustment for race. BUN/Creatinine Ratio 24.7 LAB CHEMISTRY METHOD 05/13/2024 1:19 PM [facility] Calcium 9.1 8.5 - 10.5 mg/dL LAB CHEMISTRY METHOD 05/13/2024 1:19 PM [facility] AST (SGOT) 15 10 - 42 unit/L LAB CHEMISTRY METHOD 05/13/2024 1:19 PM [facility] ALT (SGPT) 21 10 - 60 unit/L LAB CHEMISTRY METHOD 05/13/2024 1:19 PM EST [facility] Alkaline Phosphatase 133(H) 42 - 121 unit/L LAB CHEMISTRY METHOD 05/13/2024 1:19 PM [facility] Total Protein 5.9(L) 6.0 - 8.0 g/dL LAB CHEMISTRY METHOD 05/13/2024 1:19 PM EST [facility] Albumin 3.3 3.2 - 5.0 g/dL LAB CHEMISTRY METHOD 05/13/2024 1:19 PM [facility] Total Bilirubin 0.3 0.0 - 1.4 mg/dL LAB CHEMISTRY METHOD 05/13/2024 1:19 PM [facility] Blood Venous blood specimen / Unknown Venipuncture / Unknown 05/13/2024 5:32 AM EST 05/13/2024 10:36 AM EST us Mark Starr MD LAB BLOOD ORDERABLES Final Res ult [facility] [address] [place] [address], documented in this encounter Visit Diagnoses Diagnosis Cerebellar stroke syndrome Acute, but ill-defined, cerebrovascular disease documented in this encounter Care Teams Physiologist Relationship Specialty Start Date End Date Physician, Pcp Unknown PCP - General 01/26/25 documented as of this encounter
--- OUTSIDE RECORDS SUMMARY | 2025-04-13 11:00 | XMS_ITS | Clinical Summary ---
Author Organization [facility] Address [address] [place] [address] Care Team Providers Care Perforator Operator Name Role Phone Unavailable Primary Care Provider Unavailabl e Social History Tobacco Use Types Packs/Day Years Used Date Smoking Tobacco: Never Assessed Sex and Gender Information Value Date Recorded Sex Assigned at Not on file Legal Sex Male 2:40 PM EDT Gender Identity Not on file Sexual Orientation Not on file Plan of Treatment Health Maintenance Due Date Last Done Comments Advance Care Planning 1955 Hepatitis C Virus Screening 1955 DTaP/Tdap/Td Vaccines (1 - Tdap) 01/18/1975 Pneumococcal Vaccines 50+ (1 of 1 - PCV) 01/18/2006 Zoster (Shingles) Vaccine (1 of 2) 01/18/2006 COVID-19 Vaccine ( - 2023-2 5 season) 2025 RSV Vaccine 50 years and old er and Patients (1 - 1-dose 75+ series) 01/18/2031 Hepatitis B Vaccines Aged Out No long er eligible based on patient's age to complete this topic
--- OUTSIDE RECORDS SUMMARY | 2025-04-13 11:00 | XMS_ITS | Encounter Summary ---
Author Organization [facility] Address [address] [place] [address] Care Team Providers Care Refrigerator Car Icer Name Role Phone Physician, Pcp Unknown Primary Care Provider Joan vailable Encounter Details Date Type Department Care Team (Late st Contact Info) Description 01/27/2025 Lab Requisition [facility] - Main Lab [address] [facility] [place] [address] Katia Bhandari PA [address] [place] [address] Encounter for other general examination [...] Procedure Name Priority Date/Time Associated Diagnosis Comments MAGNESIUM Routine 01/27/2025 4:53 AM EDT Encounter for other general examination documented in this encounter Results * (ABNORMAL) Magnesium (01/27/2025 4:53 AM EDT) Magnesium 1.4(L) 1.9 - 2.6 mg/dL LAB CHEMISTRY METHOD 01/27/2025 9:41 AM EDT [facility] Blood Venous blood specimen / Unknown Venipuncture / Unknown 01/27/2025 4:53 AM EDT 01/27/2025 8:15 AM EDT Katia LAROSE LAB BLOOD ORDERABLES Final Resul t [facility] ([facility]) [facility] [address] [place] [address], documented in this encounter Visit Diagnoses Diagnosis Encounter for other general examination documented in this encounter Care Teams Refrigerator Car Icer Relationship Specialty Start Date End Date Physician, Pcp Unknown PCP - General 01/26/25 documented as of this encounter
--- OUTSIDE RECORDS SUMMARY | 2025-04-13 11:01 | XMS_ITS | Encounter Summary ---
Author Organization [facility] [address] Address [address] [place] [address] Care Team Providers Care Electrical Controls Technician Name Role Phone Physician, Pcp Unknown Primary Care Provider Joan vailable Encounter Details Date Type Department Care Team (Late st Contact Info) Description 05/08/2024 Lab Requisition [facility] - Main Lab [address] [place] [address] Mark Starr MD [address] [place] [id number] Cerebral infarction, unspecified (CMS/HCC V24, CMS/HCC V28) [...] Associated Diagnosis Comments COMPLETE BLOOD COUNT Routine 05/08/2024 5:49 AM EST Cerebral infarction, unspecified (CMS/HCC) COMPREHENSIVE METABOLIC PANEL Routine 05/08/2024 5:49 AM EST Cerebral infarction, unspecified (CMS/HCC) documented in this encounter Results * (ABNORMAL) Complete blood count (05/08/2024 5:49 AM EST) WBC 8.2 4.8 - 10.8 K/[facility] LAB HEMETOLOGY METHOD 05/08/2024 9:08 AM EST [facility] RBC 3.90(L) 4.50 - 5.50 M/[facility] LAB HEMETOLOGY METHOD 05/08/2024 9:08 AM [facility] LAB Hemoglobin 10.8(L) 13.5 - 17.5 g/dL LAB HEMETOLOGY METHOD 05/08/2024 9:08 AM [facility] LAB Hematocrit 33.7(L) 42.0 - 54.0 % LAB HEMETOLOGY METHOD 05/08/2024 9:08 AM [facility] LAB MCV 85.8 79.0 - 98.0 FL LAB HEMETOLOGY METHOD 05/08/2024 9:08 AM [facility] LAB MCH 27.5 27.0 - 32.0 pcg LAB HEMETOLOGY METHOD 05/08/2024 9:08 AM [facility] LAB MCHC 32.0 32.0 - 37.0 g/dL LAB HEMETOLOGY METHOD 05/08/2024 9:08 AM [facility] LAB RDW 13.4 11.0 - 15.0 % LAB HEMETOLOGY METHOD 05/08/2024 9:08 AM [facility] LAB Platelets 364 130 - 400 K/[facility] LAB HEMETOLOGY METHOD 05/08/2024 9:08 AM [facility] LAB MPV 9.2 7.0 - 11.0 FL LAB HEMETOLOGY METHOD 05/08/2024 9:08 AM [facility] LAB NRBC 0.0 <1.0 % LAB HEMETOLOGY METHOD 05/08/2024 9:08 AM [facility] LAB NRBC Absolute 0.00 <0.10 K/mcL LAB HEMETOLOGY METHOD 05/08/2024 9:08 AM [facility] LAB Blood Venous blood specimen / Unknown Venipuncture / Unknown 05/08/2024 5:49 AM EST 05/08/2024 8:38 AM EST us Mark Starr MD LAB BLOOD ORDERABLES Final Res ult [facility] [address] [place] [address], * (ABNORMAL) Comprehensive metabolic panel (05/08/2024 5:49 AM EST) Sodium 141 133 - 145 mmol/L LAB CHEMISTRY METHOD 05/08/2024 9:37 AM [facility] LAB Potassium 4.1 3.5 - 5.5 mmol/L LAB CHEMISTRY METHOD 05/08/2024 9:37 AM [facility] LAB Chloride 105 96 - 110 mmol/L LAB CHEMISTRY METHOD 05/08/2024 9:37 AM [facility] LAB CO2 30 21 - 32 mmol/L LAB CHEMISTRY METHOD 05/08/2024 9:37 AM [facility] LAB Anion Gap 6 3 - 11 LAB CHEMISTRY METHOD 05/08/2024 9:37 AM [facility] LAB Glucose 95 70 - 100 mg/dL LAB CHEMISTRY METHOD 05/08/2024 9:37 AM [facility] LAB BUN 19 5 - 25 mg/dL LAB CHEMISTRY METHOD 05/08/2024 9:37 AM [facility] LAB Creatinine 0.88 0.70 - 1.30 mg/dL LAB CHEMISTRY METHOD 05/08/2024 9:37 AM [facility] LAB eGFR 94 >=60 mL/min/1. 73m2 LAB CHEMISTRY METHOD 05/08/2024 9:37 AM [facility] LAB Comment:Calculation based on the Chronic Kidney Disease Epidemiology Collaboration (CKD-EPI) equation refit without adjustment for race. BUN/Creatinine Ratio 21.6 LAB CHEMISTRY METHOD 05/08/2024 9:37 AM [facility] LAB Calcium 9.3 8.5 - 10.5 mg/dL LAB CHEMISTRY METHOD 05/08/2024 9:37 AM [facility] LAB AST (SGOT) 17 10 - 42 unit/L LAB CHEMISTRY METHOD 05/08/2024 9:37 AM [facility] LAB ALT (SGPT) 25 10 - 60 unit/L LAB CHEMISTRY METHOD 05/08/2024 9:37 AM [facility] LAB Alkaline Phosphatase 125(H) 42 - 121 unit/L LAB CHEMISTRY METHOD 05/08/2024 9:37 AM [facility] LAB Total Protein 6.0 6.0 - 8.0 g/dL LAB CHEMISTRY METHOD 05/08/2024 9:37 AM EST [facility] LAB Albumin 3.2 3.2 - 5.0 g/dL LAB CHEMISTRY METHOD 05/08/2024 9:37 AM [facility] LAB Total Bilirubin 0.3 0.0 - 1.4 mg/dL LAB CHEMISTRY METHOD 05/08/2024 9:37 AM [facility] LAB Blood Venous blood specimen / Unknown Venipuncture / Unknown 05/08/2024 5:49 AM EST 05/08/2024 8:38 AM EST us Mark Starr MD LAB BLOOD ORDERABLES Final Res ult [facility] [address] [place] [address], documented in this encounter Visit Diagnoses Diagnosis Cerebral infarction, unspecified (CMS/HCC V24, CMS/HCC V28) documented in this encounter Care Teams Electrical Controls Technician Relationship Specialty Start Date End Date Physician, Pcp Unknown PCP - General 01/26/25 documented as of this encounter
--- OUTSIDE RECORDS SUMMARY | 2025-04-13 11:01 | XMS_ITS | Encounter Summary ---
Author Organization [facility] Address [address] [place] [address] Care Team Providers Care Cigar Packer And Picker Name Role Phone Physician, Pcp Unknown Primary Care Provider Joan vailable Encounter Details Date Type Department Care Team (Late st Contact Info) Description 02/01/2025 Lab Requisition [facility] - Main Lab 299 [facility] [place] [address] Katia Bhandari PA [address] [place] [address] Social History Tobacco Use Types Packs/Day Years Used Date Smoking Tobacco: Never Assessed Sex and Gender Information Value Date Recorded Sex Assigned at Not on file Legal Sex Male 12:18 PM EST Gender Identity Not on file Sexual Orientation Not on file documented as of this encounter Plan of Treatment Scheduled Orders Name Type Priority Associated Diagnoses Orde r Schedule Comprehensive metabolic panel Lab STAT Ordered: 02/01/2025 Magnesium Lab STAT Ordered: 02/01 CBC and differential Lab STAT Orde red: 02/01/2025 documented as of this encounter Visit Diagnoses Not on filedocumented in this encounter Care Teams Cigar Packer And Picker Relationship Specialty Start Date End Date Physician, Pcp Unknown PCP - General 01/26/25 documented as of this encounter
--- OUTSIDE RECORDS SUMMARY | 2025-04-13 11:01 | XMS_ITS | Encounter Summary ---
Author Organization [facility] Address [address] [place] [address] Care Team Providers Care Residential Case Manager Name Role Phone Physician, Pcp Unknown Primary Care Provider Joan vailable Encounter Details Date Type Department Care Team (Late st Contact Info) Description 02/01/2025 Lab Requisition [facility] - Main Lab [address] [place] [address] Katia Bhandari PA [address] [place] [address] Unspecified external cause status Social History Tobacco Use Types Packs/Day Years [...] Diagnosis Comments CBC WITH AUTO DIFFERENTIAL Routine 02/01/2025 1:00 PM EDT Unspecified external cause status CBC AND DIFFERENTIAL Routine 02/01/2025 1:00 PM EDT Unspecified external cause status COMPREHENSIVE METABOLIC PANEL Routine 02/01/2025 1:00 PM EDT Unspecified external cause status documented in this encounter Results * (ABNORMAL) CBC auto differential (02/01/2025 1:00 PM EDT) [facility] WBC 6.8 4.8 - 10.8 K/[facility] LAB HEMETOLOGY METHOD 02/01/2025 2:21 PM EDT [facility] RBC 3.80(L) 4.50 - 5.50 M/mcL LAB HEMETOLOGY METHOD 02/01/2025 2:21 PM [facility] LAB Hemoglobin 10.1(L) 13.5 - 17.5 g/dL LAB HEMETOLOGY METHOD 02/01/2025 2:21 PM [facility] LAB Hematocrit 32.2(L) 42.0 - 54.0 % LAB HEMETOLOGY METHOD 02/01/2025 2:21 PM [facility] LAB MCV 84.7 79.0 - 98.0 FL LAB HEMETOLOGY METHOD 02/01/2025 2:21 PM [facility] LAB MCH 26.6(L) 27.0 - 32.0 pcg LAB HEMETOLOGY METHOD 02/01/2025 2:21 PM [facility] LAB MCHC 31.4(L) 32.0 - 37.0 g/dL LAB HEMETOLOGY METHOD 02/01/2025 2:21 PM [facility] LAB RDW 15.0 11.0 - 15.0 % LAB HEMETOLOGY METHOD 02/01/2025 2:21 PM [facility] LAB Platelets 300 130 - 400 K/mcL LAB HEMETOLOGY METHOD 02/01/2025 2:21 PM [facility] LAB MPV 9.7 7.0 - 11.0 FL LAB HEMETOLOGY METHOD 02/01/2025 2:21 PM [facility] LAB NRBC 0.0 <1.0 % LAB HEMETOLOGY METHOD 02/01/2025 2:21 PM [facility] LAB NRBC Absolute 0.00 <0.10 K/mcL LAB HEMETOLOGY METHOD 02/01/2025 2:21 PM [facility] LAB Neutrophils Relative 70.3 % LAB HEMETOLOGY METHOD 02/01/2025 2:21 PM [facility] LAB Lymphocytes Relative 19.0 % LAB HEMETOLOGY METHOD 02/01/2025 2:21 PM EDT [facility] LAB Monocytes Relative 7.9 % LAB HEMETOLOGY METHOD 02/01/2025 2:21 PM [facility] LAB Eosinophils Relative 1.9 % LAB HEMETOLOGY METHOD 02/01/2025 2:21 PM [facility] LAB Basophils Relative 0.6 % LAB HEMETOLOGY METHOD 02/01/2025 2:21 PM [facility] LAB Immature Granulocytes Relative 0.3 % LAB HEMETOLOGY METHOD 02/01/2025 2:21 PM [facility] LAB Neutrophils Absolute 4.80 1.50 - 7.00 K/mcL LAB HEMETOLOGY METHOD 02/01/2025 2:21 PM [facility] LAB Lymphocytes Absolute 1.30 1.00 - 5.00 K/mcL LAB HEMETOLOGY METHOD 02/01/2025 2:21 PM [facility] LAB Monocytes Absolute 0.54 0.20 - 1.00 K/mcL LAB HEMETOLOGY METHOD 02/01/2025 2:21 PM [facility] LAB Eosinophils Absolute 0.13 0.00 - 0.50 K/mcL LAB HEMETOLOGY METHOD 02/01/2025 2:21 PM [facility] LAB Basophils Absolute 0.04 0.00 - 0.20 K/mcL LAB HEMETOLOGY METHOD 02/01/2025 2:21 PM [facility] LAB Immature Granulocytes Absolute 0.02 0.00 - 0.03 K/mcL LAB HEMETOLOGY METHOD 02/01/2025 2:21 PM [facility] LAB Blood Venous blood specimen / Unknown 02/01/2025 1:00 PM EDT 02/01/2025 2:14 PM EDT Katia LAROSE LAB BLOOD ORDERABLES Final Resul t [facility] [address] [place] [address], * (ABNORMAL) Comprehensive metabolic panel (02/01/2025 1:00 PM EDT) Sodium 136 133 - 145 mmol/L LAB CHEMISTRY METHOD 02/01/2025 3:01 PM [facility] LAB Potassium 4.3 3.5 - 5.5 mmol/L LAB CHEMISTRY METHOD 02/01/2025 3:01 PM [facility] LAB Chloride 99 96 - 110 mmol/L LAB CHEMISTRY METHOD 02/01/2025 3:01 PM [facility] LAB CO2 27 21 - 32 mmol/L LAB CHEMISTRY METHOD 02/01/2025 3:01 PM [facility] LAB Anion Gap 10 3 - 11 LAB CHEMISTRY METHOD 02/01/2025 3:01 PM [facility] LAB Glucose 107(H) 70 - 100 mg/dL LAB CHEMISTRY METHOD 02/01/2025 3:01 PM [facility] LAB BUN 20 5 - 25 mg/dL LAB CHEMISTRY METHOD 02/01/2025 3:01 PM [facility] LAB Creatinine 1.03 0.70 - 1.30 mg/dL LAB CHEMISTRY METHOD 02/01/2025 3:01 PM [facility] LAB eGFR 79 >=60 mL/min/1. 73m2 LAB CHEMISTRY METHOD 02/01/2025 3:01 PM [facility] LAB Comment:Calculation based on the Chronic Kidney Disease Epidemiology Collaboration (CKD-EPI) equation refit without adjustment for race. BUN/Creatinine Ratio 19.4 LAB CHEMISTRY METHOD 02/01/2025 3:01 PM [facility] LAB Calcium 9.6 8.5 - 10.5 mg/dL LAB CHEMISTRY METHOD 02/01/2025 3:01 PM EDT [facility] LAB AST (SGOT) 22 10 - 42 unit/L LAB CHEMISTRY METHOD 02/01/2025 3:01 PM EDT [facility] LAB ALT (SGPT) 23 10 - 60 unit/L LAB CHEMISTRY METHOD 02/01/2025 3:01 PM EDT [facility] LAB Alkaline Phosphatase 166(H) 42 - 121 unit/L LAB CHEMISTRY METHOD 02/01/2025 3:01 PM EDT [facility] LAB Total Protein 7.1 6.0 - 8.0 g/dL LAB CHEMISTRY METHOD 02/01/2025 3:01 PM EDT [facility] LAB Albumin 4.3 3.2 - 5.0 g/dL LAB CHEMISTRY METHOD [facility]/01[facility]2025 [facility] Total Bilirubin 0.3 0.0 - 1.4 mg/dL LAB CHEMISTRY METHOD 02/01/2025 3:01 PM EDT [facility] LAB Blood Venous blood specimen / Unknown 02/01/2025 1:00 PM EDT 02/01/2025 2:14 PM EDT Katia LAROSE LAB BLOOD ORDERABLES Final Resul t [facility] [address] [place] [address], documented in this encounter Visit Diagnoses Diagnosis Unspecified external cause status documented in this encounter Care Teams Residential Case Manager Relationship Specialty Start Date End Date Physician, Pcp Unknown PCP - General 01/26/25 documented as of this encounter
--- OUTSIDE RECORDS SUMMARY | 2025-04-13 11:01 | XMS_ITS | Encounter Summary ---
Author Organization [facility] Address [address] [place] [address] Care Team Providers Care Tail Worker Name Role Phone Physician, Pcp Unknown Primary Care Provider Joan vailable Encounter Details Date Type Department Care Team (Late st Contact Info) Description 05/01/2024 Lab Requisition [facility] - Main Lab [address] [facility] [place] [address] Mark Starr MD [address] [place] [address] Cerebral infarction, unspecified (CMS/HCC V24, CMS/HCC V28) [...] Procedure Name Priority Date/Time Associated Diagnosis Comments SEDIMENTATION RATE Routine 05/01/2024 6: 33 AM EST Cerebral infarction, unspecified (CMS/HCC) COMPLETE BLOOD COUNT Routine 05/01/2024 6:33 AM EST Cerebral infarction, unspecified (CMS/HCC) C-REACTIVE PROTEIN Routine 05/01/2024 6: 33 AM EST Cerebral infarction, unspecified (CMS/HCC) COMPREHENSIVE METABOLIC PANEL Routine 05/01/2024 6:33 AM EST Cerebral infarction, unspecified (CMS/HCC) documented in this encounter Results * (ABNORMAL) Sedimentation rate (05/01/2024 6:33 AM EST) Pathologist [facility] Sed Rate 37(H) 0 - 20 mm/hr LAB HEMETOLOGY METHOD 05/01/2024 9:[address] [facility] Blood Venous blood specimen / Unknown Venipuncture / Unknown 05/01/2024 6:33 AM EST 05/01/2024 8:10 AM EST Mark Starr MD LAB BLOOD ORDERABLES Final Res ult Performing Organization Address City/[facility]/ZIP Co de Phone Number [facility] [address] [place] [address], [place] [phone] * (ABNORMAL) C-reactive protein (05/01/2024 6:33 AM EST) [facility] C-Reactive Protein 2.87(H) <=0.50 mg/dL LAB CHEMISTRY METHOD 05/01/2024 10:[address] [facility] Blood Venous blood specimen / Unknown Venipuncture / Unknown 05/01/2024 6:33 AM EST 05/01/2024 8:10 AM EST Mark Starr MD LAB BLOOD ORDERABLES Final Res ult Performing Organization Address City/[facility]/ZIP Co de Phone Number [facility] [address] [place] [address], [place] [phone] * (ABNORMAL) Complete blood count (05/01/2024 6:33 AM EST) Pathologist [facility] WBC 7.4 4.8 - 10.8 K/mcL LAB HEMETOLOGY METHOD 05/01/2024 9:[address] [facility] RBC 4.00(L) 4.50 - 5.50 M/[facility] LAB HEMETOLOGY METHOD 05/01/2024 9:[address] [facility] Hemoglobin 10.9(L) 13.5 - 17.5 g/dL LAB HEMETOLOGY METHOD 05/01/2024 9:37 AM [facility] LAB Hematocrit 34.3(L) 42.0 - 54.0 % LAB HEMETOLOGY METHOD 05/01/2024 9:37 AM [facility] LAB MCV 84.9 79.0 - 98.0 FL LAB HEMETOLOGY METHOD 05/01/2024 9:37 AM [facility] LAB MCH 27.0 27.0 - 32.0 pcg LAB HEMETOLOGY METHOD 05/01/2024 9:37 AM [facility] LAB MCHC 31.8(L) 32.0 - 37.0 g/dL LAB HEMETOLOGY METHOD 05/01/2024 9:37 AM [facility] LAB RDW 13.4 11.0 - 15.0 % LAB HEMETOLOGY METHOD 05/01/2024 9:37 AM [facility] LAB Platelets 287 130 - 400 K/mcL LAB HEMETOLOGY METHOD 05/01/2024 9:37 AM [facility] LAB MPV 9.7 7.0 - 11.0 FL LAB HEMETOLOGY METHOD 05/01/2024 9:37 AM [facility] LAB NRBC 0.0 <1.0 % LAB HEMETOLOGY METHOD 05/01/2024 9:37 AM [facility] LAB NRBC Absolute 0.00 <0.10 K/mcL LAB HEMETOLOGY METHOD 05/01/2024 9:37 AM [facility] Blood Venous blood specimen / Unknown Venipuncture / Unknown 05/01/2024 6:33 AM EST 05/01/2024 8:10 AM EST us Mark Starr MD LAB BLOOD ORDERABLES Final Res ult [facility] [address] [place] [address], * (ABNORMAL) Comprehensive metabolic panel (05/01/2024 6:33 AM EST) Sodium 138 133 - 145 mmol/L LAB CHEMISTRY METHOD 05/01/2024 10:00 AM [facility] Potassium 4.0 3.5 - 5.5 mmol/L LAB CHEMISTRY METHOD 05/01/2024 10:00 AM [facility] Chloride 101 96 - 110 mmol/L LAB CHEMISTRY METHOD 05/01/2024 10:00 AM [facility] CO2 30 21 - 32 mmol/L LAB CHEMISTRY METHOD 05/01/2024 10:00 AM [facility] Anion Gap 7 3 - 11 LAB CHEMISTRY METHOD 05/01/2024 10:00 AM [facility] Glucose 98 70 - 100 mg/dL LAB CHEMISTRY METHOD 05/01/2024 10:00 AM [facility] BUN 19 5 - 25 mg/dL LAB CHEMISTRY METHOD 05/01/2024 10:00 AM [facility] Creatinine 0.80 0.70 - 1.30 mg/dL LAB CHEMISTRY METHOD 05/01/2024 10:00 AM [facility] eGFR 96 >=60 mL/min/1. 73m2 LAB CHEMISTRY METHOD 05/01/2024 10:00 AM [facility] LAB Comment:Calculation based on the Chronic Kidney Disease Epidemiology Collaboration (CKD-EPI) equation refit without adjustment for race. BUN/Creatinine Ratio 23.8 LAB CHEMISTRY METHOD 05/01/2024 10:00 AM [facility] Calcium 9.5 8.5 - 10.5 mg/dL LAB CHEMISTRY METHOD 05/01/2024 10:00 AM [facility] AST (SGOT) 17 10 - 42 unit/L LAB CHEMISTRY METHOD 05/01/2024 10:00 AM [facility] ALT (SGPT) 24 10 - 60 unit/L LAB CHEMISTRY METHOD 05/01/2024 10:[address] [facility] Alkaline Phosphatase 154(H) 42 - 121 unit/L LAB CHEMISTRY METHOD 05/01/2024 10:[address] [facility] Total Protein 6.2 6.0 - 8.0 g/dL LAB CHEMISTRY METHOD 05/01/2024 10:[address] [facility] Albumin 3.3 3.2 - 5.0 g/dL LAB CHEMISTRY METHOD 05/01/2024 10:00 AM [facility] Total Bilirubin 0.5 0.0 - 1.4 mg/dL LAB CHEMISTRY METHOD 05/01/2024 10:00 AM [facility] Blood Venous blood specimen / Unknown Venipuncture / Unknown 05/01/2024 6:33 AM EST 05/01/2024 8:10 AM EST us Mark Starr MD LAB BLOOD ORDERABLES Final Res ult [facility] [address] [place] [address], documented in this encounter Visit Diagnoses Diagnosis Cerebral infarction, unspecified (CMS/HCC V24, CMS/HCC V28) documented in this encounter Care Teams Tail Worker Relationship Specialty Start Date End Date Physician, Pcp Unknown PCP - General 01/26/25 documented as of this encounter
--- OUTSIDE RECORDS SUMMARY | 2025-04-13 11:01 | XMS_ITS | Encounter Summary ---
Author Organization [facility] Address [address] [place] [address] Care Team Providers Care Chemical Packager Name Role Phone Physician, Pcp Unknown Primary Care Provider Joan vailable Encounter Details Date Type Department Care Team (Late st Contact Info) Description 02/02/2025 Lab Requisition [facility] - Main Lab [address] [facility] [employer] [place] [address] Marcella Duque PA [address] [place] [address] Encounter for other general examination Social History [...] Diagnosis Comments CBC WITH AUTO DIFFERENTIAL Routine 02/02/2025 5:17 AM EDT Encounter for other general examination CBC AND DIFFERENTIAL Routine 02/02/2025 5:17 AM EDT Encounter for other general examination COMPREHENSIVE METABOLIC PANEL Routine 02/02/2025 5:17 AM EDT Encounter for other general examination documented in this encounter Results * (ABNORMAL) CBC auto differential (02/02/2025 5:17 AM EDT) WBC 4.8 4.8 - 10.8 K/mcL LAB HEMETOLOGY METHOD 02/02/2025 11:08 AM EDT [facility] RBC 3.20(L) 4.50 - 5.50 M/mcL LAB HEMETOLOGY METHOD 02/02/2025 11:08 AM [facility] Hemoglobin 8.8(L) 13.5 - 17.5 g/dL LAB HEMETOLOGY METHOD 02/02/2025 11:08 AM [facility] Hematocrit 26.9(L) 42.0 - 54.0 % LAB HEMETOLOGY METHOD 02/02/2025 11:08 AM [facility] MCV 85.4 79.0 - 98.0 FL LAB HEMETOLOGY METHOD 02/02/2025 11:08 AM [facility] MCH 27.9 27.0 - 32.0 pcg LAB HEMETOLOGY METHOD 02/02/2025 11:08 AM [facility] MCHC 32.7 32.0 - 37.0 g/dL LAB HEMETOLOGY METHOD 02/02/2025 11:08 AM [facility] RDW 15.1(H) 11.0 - 15.0 % LAB HEMETOLOGY METHOD 02/02/2025 11:08 AM [facility] Platelets 224 130 - 400 K/mcL LAB HEMETOLOGY METHOD 02/02/2025 11:08 AM [facility] MPV 9.5 7.0 - 11.0 FL LAB HEMETOLOGY METHOD 02/02/2025 11:08 AM [facility] NRBC 0.0 <1.0 % LAB HEMETOLOGY METHOD 02/02/2025 11:08 AM [facility] NRBC Absolute 0.00 <0.10 K/mcL LAB HEMETOLOGY METHOD 02/02/2025 11:08 AM [facility] Neutrophils Relative 63.9 % LAB HEMETOLOGY METHOD 02/02/2025 11:08 AM [facility] Lymphocytes Relative 22.5 % LAB HEMETOLOGY METHOD 02/02/2025 11:08 AM [facility] Monocytes Relative 10.5 % LAB HEMETOLOGY METHOD 02/02/2025 11:08 AM [facility] Eosinophils Relative 2.1 % LAB HEMETOLOGY METHOD 02/02/2025 11:08 AM [facility] Basophils Relative 0.8 % LAB HEMETOLOGY METHOD 02/02/2025 11:08 AM [facility] Immature Granulocytes Relative 0.2 % LAB HEMETOLOGY METHOD 02/02/2025 11:08 AM [facility] Neutrophils Absolute 3.04 1.50 - 7.00 K/mcL LAB HEMETOLOGY METHOD 02/02/2025 11:08 AM [facility] Lymphocytes Absolute 1.07 1.00 - 5.00 K/mcL LAB HEMETOLOGY METHOD 02/02/2025 11:08 AM [facility] Monocytes Absolute 0.50 0.20 - 1.00 K/mcL LAB HEMETOLOGY METHOD 02/02/2025 11:08 AM [facility] Eosinophils Absolute 0.10 0.00 - 0.50 K/mcL LAB HEMETOLOGY METHOD 02/02/2025 11:08 AM [facility] Basophils Absolute 0.04 0.00 - 0.20 K/mcL LAB HEMETOLOGY METHOD 02/02/2025 11:08 AM [facility] Immature Granulocytes Absolute 0.01 0.00 - 0.03 K/mcL LAB HEMETOLOGY METHOD 02/02/2025 11:08 AM [facility] Blood Venous blood specimen / Unknown Venipuncture / Unknown 02/02/2025 5:17 AM EDT 02/02/2025 10:22 AM EDT us Marcella LAROSE LAB BLOOD ORDERABLES Final Re sult [facility] [address] [place] [address], * (ABNORMAL) Comprehensive metabolic panel (02/02/2025 5:17 AM EDT) Sodium 137 133 - 145 mmol/L LAB CHEMISTRY METHOD 02/02/2025 11:31 AM [facility] Potassium 4.2 3.5 - 5.5 mmol/L LAB CHEMISTRY METHOD 02/02/2025 11:31 AM [facility] Chloride 102 96 - 110 mmol/L LAB CHEMISTRY METHOD 02/02/2025 11:31 AM [facility] CO2 29 21 - 32 mmol/L LAB CHEMISTRY METHOD 02/02/2025 11:31 AM [facility] Anion Gap 6 3 - 11 LAB CHEMISTRY METHOD 02/02/2025 11:31 AM [facility] Glucose 79 70 - 100 mg/dL LAB CHEMISTRY METHOD 02/02/2025 11:31 AM [facility] BUN 19 5 - 25 mg/dL LAB CHEMISTRY METHOD 02/02/2025 11:31 AM [facility] Creatinine 0.79 0.70 - 1.30 mg/dL LAB CHEMISTRY METHOD 02/02/2025 11:31 AM [facility] eGFR 96 >=60 mL/min/1. 73m2 LAB CHEMISTRY METHOD 02/02/2025 11:31 AM [facility] Comment:Calculation based on the Chronic Kidney Disease Epidemiology Collaboration (CKD-EPI) equation refit without adjustment for race. BUN/Creatinine Ratio 24.1 LAB CHEMISTRY METHOD 02/02/2025 11:31 AM [facility] Calcium 9.1 8.5 - 10.5 mg/dL LAB CHEMISTRY METHOD 02/02/2025 11:31 AM [facility] AST (SGOT) 16 10 - 42 unit/L LAB CHEMISTRY METHOD 02/02/2025 11:31 AM EDT [facility] ALT (SGPT) 19 10 - 60 unit/L LAB CHEMISTRY METHOD 02/02/2025 11:31 AM EDT [facility] Alkaline Phosphatase 130(H) 42 - 121 unit/L LAB CHEMISTRY METHOD 02/02/2025 11:31 AM EDT [facility] Total Protein 5.9(L) 6.0 - 8.0 g/dL LAB CHEMISTRY METHOD 02/02/2025 11:31 AM EDT [facility] Albumin 3.7 3.2 - 5.0 g/dL LAB CHEMISTRY METHOD 02/02/2025 11:31 AM [facility] Total Bilirubin 0.2 0.0 - 1.4 mg/dL LAB CHEMISTRY METHOD 02/02/2025 11:31 AM EDT [facility] Blood Venous blood specimen / Unknown Venipuncture / Unknown 02/02/2025 5:17 AM EDT 02/02/2025 10:22 AM EDT us Marcella LAROSE LAB BLOOD ORDERABLES Final Re sult [facility] [address] [place] [address], documented in this encounter Visit Diagnoses Diagnosis Encounter for other general examination documented in this encounter Care Teams Chemical Packager Relationship Specialty Start Date End Date Physician, Pcp Unknown PCP - General 01/26/25 documented as of this encounter
== END 2025-04-13 10:35 | disposition home or self-care (01) ==
LOC: HO.HNS 09:47
PROVIDERS: PCP Physician Assistant Surgical; Referring Provider Physician Assistant Surgical; Visit Provider Physician Assistant
DX: M47.819 Spondylosis without myelopathy or radiculopathy, site unspecified (principal)
CPT/HCPCS: 99204

== ENCOUNTER → 2025-04-13 09:46 | Outpatient (BNVA) | payer MEDICARE, SELFPAY | PROVIDERS: PCP Physician Assistant Surgical; Referring Provider Physician Assistant Surgical; Visit Provider Physician Assistant | DX: M47.819 Spondylosis without myelopathy or radiculopathy, site unspecified (principal); M54.50 Low back pain, unspecified; R26.2 Difficulty in walking, not elsewhere classified; Z86.73 Personal history of transient ischemic attack (TIA), and cerebral infarction without residual deficits; Z79.01 Long term (current) use of anticoagulants | CPT/HCPCS: 99202 ==